=== PATIENT | female | born 1995 | race Two or more races ===

== ENCOUNTER 2020-03-29 03:03 | Observation (INO) | payer MEDICAID | END 2020-03-29 04:07 | disposition home or self-care (01) | DRG 566 | LOC: LDRP 03:03 | PROVIDERS: ADMIT Specialist; ATTEND Specialist | DX: O62.9 Abnormality of forces of labor, unspecified (principal); Z3A.39 39 weeks gestation of pregnancy | CPT/HCPCS: 59025; 81002; G0378 ==